=== PATIENT | male | born 1965 | race Caucasian/White ===

== ENCOUNTER 2018-07-18 06:54 | Day surgery (SDC) | payer MEDICARE, OTHER ==
--- NOTE | 2018-07-11 08:55 | PREOPHP ---
DATE OF ADMISSION: 07/18/2018 The patient to have surgery with Dr. Adi Lal, 07/18/2018. Consultation requested by Dr. Adi Lal for medical evaluation and clearance of a 53-year-old gentleman about to undergo surgery. Thank you, Dr. Lal, for allowing us to participate in the care of this patient. HISTORY OF PRESENT ILLNESS: Brijesh Wahl a 53-year-old gentleman with visual issues noted to have cataracts bilaterally, left more prominent than the right, is currently being admitted for correction of his left cataract for extraction and lens implantation of note. The patient is diabetic, who has had retinopathy as well as renal failure and currently is a recipien t of a transplanted kidney. PAST MEDICAL AND SURGICAL HISTORY: Positive for the following: He has had no significant medical ho spitalizations. His surgical procedures have included a kidney transplant as mentioned in 04/2018, also had vascular access or shunt put in a right and left upper extremity 1 time a piece, had a laparoscopic cholecyste ctomy and arterial bypass appears to be a fem-pop bypass on the right side. Other than that, he has had no other major surgical procedures. He has not broken any big bones. MEDICATIONS: He is currently taking the following medications: 1. Alprazolam 0.5 mg p.r.n. as needed. 2. Amlodipine 5 mg daily. 3. Atorvastatin 10 mg a day. 4. Carvedilol 12.5 mg, a total of 37.5 mg b.i.d. 5. Benadryl 25 mg q.6 hours as needed. 6. Colace 100 mg 2 b.i.d. 7. NovoLog insulin 4 units before breakfast, 6 before lunch and dinner. 8. Basaglar. The patient taking 8 units as needed at night. 9. He is also taking CellCept 250 mg 4 capsules by mouth b.i.d. 10. Protonix 40 mg a day. 11. Prednisone 5 mg daily. 12. Kayexalate 15 grams per 60 mL, takes 30 grams every other day. 13. Bactrim 400/80 mg 1 tablet by mouth daily. 14. Prograf 1 mg daily. 15. Valganciclovir or Valcyte 450 mg 2 tablets by mouth daily. 16. Tradjenta 5 mg a day. 17. Repaglinide 0.05 mg 4 times a day. ALLERGIES: HE IS ALLERGIC TO METOPROLOL. HE GETS A RASH FROM THAT. Other than the above, the patient, since his transplant, has been doing relatively well. SOCIAL HISTORY: The patient is , has 2 daughters and 5 grandchildren. Quit smoking 20 years ago. No alcohol. One cup of coffee a day. Has no difficulty sleeping at night. Used to work as a dedicated truck driver. FAMILY HISTORY: Father at age 71 off stomach cancer. Mother in her 60s of leukemia. Two siste rs in good health. There is, however, a family history of diabetes and heart cancer and hypertension . REVIEW OF SYSTEMS: HEENT: Unremarkable other than visual problems, cataracts, left greater than right. CARDIORESPIRATORY: Denies any chest pain or shortness of breath. GASTROINTESTINAL: Has signs and symptoms of hyperacidity but no melena or hematemesis. GENITOURINARY: No urgency, frequency. MUSCULOSKELETAL: Unremarkable. NEUROPSYCHIATRIC: Unremarkable. GENERAL HEALTH: As above. PHYSICAL EXAMINATION: VITAL SIGNS: The patient's blood pressure was 110/60, pulse was 72 and regular, respirations were 18 , temperature 97.4. Height 5 feet 3/4 inches, weight 156.1 pounds. GENERAL: The patient was noted to be a well-developed, well-nourished male, alert and cooperative, i n no apparent acute distress, oriented to time, place, and person. HEAD, EYES, EAR, NOSE AND THROAT: Head was atraumatic. Eyes: Pupils were equal, reacted to light a nd accommodation. Fundi were poorly visualized secondary to bilateral cataracts. Tympanic membranes were unremarkable. Nose was negative. Mouth was unremarkable. Fair oral hygiene was present. NECK: Supple without any rigidity. Trachea was midline. Thyroid was within normal limits. Neck ve ins were flat. Carotid pulses were equal. No bruits were heard. BACK: Unremarkable. CHEST: Symmetrical. BREASTS AND AXILLARY: Did not reveal any masses. LUNGS: Clear to percussion and auscultation. HEART: PMI is fifth intercostal space at the midclavicular line. A regular sinus rhythm was noted. No significant murmurs, rubs, or gallops being elicited. ABDOMEN: Soft, good bowel sounds were noted. A scar was noted in his right lower quadrant where the new kidney was implanted and has no significant organomegaly, masses, or tenderness. GENITALIA: Normal male external genitalia. RECTAL AND PROSTATIC: Per PCP. EXTREMITIES: Do not reveal any clubbing, edema, cyanosis. Bilateral vascular accesses were noted in the upper extremity as well as scar from his vascular bypass on his right lower extremity being note d as well. Peripheral pulses were physiologic. SKIN: Moist and warm without any eruptions. No gross lymphadenopathy was noted. NEUROLOGIC: Grossly intact. IMPRESSION: 1. Cataracts, left greater than right. 2. 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 3. Hypertension. 4. Hyperlipidemia. 5. Degenerative joint disease. 6. Stable health. DISCUSSION: Review of laboratory and other data revealed the following: The patient's chemistry tamayo el revealed normal electrolytes, random glucose 172, BUN and creatinine were normal. Calcium and uri c acid, proteins were normal. Alkaline phosphatase was elevated at 302 as was his SGPT and SGOT mini lucio 74 and 58 respectively. Lipids were normal. Serum iron was mildly elevated. Hemoglobin A1c w as 6.2. CBC, UA, PT and PTT were normal. The patient's EKG revealed a sinus rhythm and lateral T-wa ve changes possibly due to coronary artery disease; however, no acute changes were noted, and the pat ient's chest x-ray revealed no acute infiltrates nor with any acute cardiopulmonary changes noted. T he patient's residual volume post-void was 66 mL. DISCUSSION: Dr. Lal, I see no contraindication to this patient undergoing current proposed surg jose luis under desired form of anesthesia. I feel he is a suitable candidate at this particular point in time. Should any medical problems arise during his stay at [facility], we will be more than happy to follow him up at the appropriate times. Thank you again, Dr. Lal, for allowing us to participate in care of this patient. Dictated By: ROSALIA HUMPHRIES/NEREIDA Conf#: [id number] DID#: [id number]
--- NOTE | 2018-07-17 22:17 | PREOPHP ---
DATE OF ADMISSION: 07/18/2018 HISTORY OF PRESENT ILLNESS: This is a 53-year-old gentleman is admitted for elective cataract surger y of the left eye. This patient has had blurring of vision in the left eye for a period of 6 to 12 m onths. The patient without any prior history of eye disease or injury. The patient does have a 26-y ear history of insulin-dependent diabetes mellitus, systemic hypertension, history of proliferative d iabetic retinopathy, previously treated with panretinal photocoagulation in both eyes. The patient h as also undergone an epiretinal membrane peeling in the macular region of the left eye. The patient has had intravitreal Avastin injection in the left eye. CURRENT MEDICATIONS: 1. Insulin. 2. Tradjenta. 3. Alprazolam. 4. Amlodipine. 5. Atorvastatin. 6. Carvedilol. 7. NovoLog insulin. 8. Basaglar. 9. Protonix. 10. Prednisone. 11. Kayexalate. 12. Bactrim. 13. Prograf. 14. Valganciclovir. 15. Repaglinide. ALLERGIES: THE PATIENT IS ALLERGIC TO METORPOLOL. PHYSICAL EXAMINATION: The visual acuity with correction is 20/30 in the right eye and finger countin g in the left eye. Slit lamp examination reveals a nasal pterygium in the right eye as well as a pos terior chamber intraocular lens in the right eye. Examination of the left eye reveals nuclear sclero tic and posterior subcapsular cataract. Applanation tonometry is 19 mmHg in the right eye and 11 mmH g in the left eye. Examination of the retina reveals evidence of panretinal photocoagulation scars p resent in both eyes. DIAGNOSIS: Nuclear sclerotic and posterior subcapsular cataract, left eye. PLAN: Cataract extraction with lens implant, left eye. The risks and alternatives to the surgery patel ve been discussed with the patient as well as the potential limitation of visual improvement due to t he prior epiretinal membrane peeling from the macula of that eye. The patient understands this and a grees to proceed with surgery in hopes of improving visual acuity in the left eye, leading to greater ability to perform activities of daily living. Dictated By: GABRIEL COLES/NEREIDA Conf#: [id number] DID#: [id number]
[~2018-07-18] VITALS: Ht 165.1 cm; Wt 69.5 kg
[2018-07-18] VITALS (7 sets, daily range): BP systolic 105–117; BP diastolic 63–71; PULSE 76–77; RESP 16–22; Ht 165.1 cm; Wt 69.5 kg
[~2018-07-18 06:54] MED LIST: AMLO-147 PO; BENA20TA4 PO; FURO40TA4 PO; LABE100T7 PO; NEPH PO; OLME40TA13 PO; SITA25TA3 PO; SVL800C PO
[2018-07-18] MEDS ORDERED: CYCLOPENTOLATE/PHENYLEPH 2 ML OPH OPER SCH (07:00)
[2018-07-18] MEDS ORDERED: MOXIFLOXACIN 0.5% 3 ML OPH OPER SCH (07:00)
[2018-07-18] MEDS ORDERED: DICLOFENAC 0.1% 2.5 ML OPH OPER SCH (07:00)
[2018-07-18] MEDS ORDERED: TROPICAMIDE 1% 15 ML OPH OPER SCH (07:00)
[2018-07-18] MEDS ORDERED: SOD CHLORIDE 0.9% 1,000 ML IV SCH (07:00)
[2018-07-18] MEDS ORDERED: AMLO5TAB4 PO (07:40)
[2018-07-18] MEDS ORDERED: CARV12.579 PO (07:42)
[2018-07-18] MEDS ORDERED: NOVO3I SC ×3 (07:43)
[2018-07-18] MEDS ORDERED: INSU100I33 SC (07:44)
[2018-07-18] MEDS ORDERED: PANT40TA3 PO (07:44)
[2018-07-18] MEDS ORDERED: PRED5TAB PO (07:45)
[2018-07-18] MEDS ORDERED: SODI15OR8 PO (07:46)
[2018-07-18] MEDS ORDERED: SULF1TAB31 PO (07:47)
[2018-07-18] MEDS ORDERED: TACR1CAP26 PO (07:48)
[2018-07-18] MEDS ORDERED: LINA5TAB PO (07:48)
[2018-07-18] MEDS ORDERED: REPA0.5T3 PO (07:49)
--- NOTE | 2018-07-18 08:01 | PREAC ---
Date/Time of Note Date/Time of Note DATE: 07/18/18 TIME: 07:58 Anesthesia Eval and Record Evaluation Time Pre-Procedure Interview DATE: 07/18/18 TIME: 07:58 Age 53 Sex male NPO: 8 hrs Preoperative diagnosis Left eye cataract Planned procedure Cataract extraction with IOL implant Past Medical History Past Medical History: Includes Cardio: HTN, Dyslipidemia Endo: Diabetes Renal: Other (H/O ESRD s/p renal transplant) Surgery & Anesthesia Issues No known issue Meds Anticoagulation: No Beta Jenelle within 24 hr: Yes Reported Medications Repaglinide* (Repaglinide*) 0.5 Mg Tablet, 0.5 MG PO AC MEALS, TAB 07/18/18 Linagliptin (TRADJENTA) 5 Mg Tablet, 5 MG PO DAILY, TAB 07/18/18 Tacrolimus* (Prograf*) 1 Mg Capsule, 1 MG PO DAILY, CAP 07/18/18 Sulfamethoxazole/Trimethoprim* (Bactrim Ds* Tablet) 1 Each Tablet, 1 TAB PO DAILY, TAB ON GOING SINCE KIDNEY TRANSPLANT 07/18/18 Sodium Polystyrene Sulfonate* (Kayexalate*) 15 Gm/60 Ml Susp, 30 GM PO EVERY OTHER DAY, ML 07/18/18 Prednisone* (Prednisone*) 5 Mg Tab, 5 MG PO DAILY, TAB 07/18/18 Pantoprazole* (Protonix*) 40 Mg Tablet.dr, 40 MG PO DAILY, TAB 07/18/18 Insulin Glargine,Hum.rec.anlog (Basaglar Kwikpen U-100) 100 Unit/1 Ml Insuln.pen, 8 UNIT SC QHS, EA 07/18/18 Insulin Aspart* (Novolog Insulin Pen*) 100 Unit/Ml Soln, 6 UNIT SC WITH LUNCH, EA 07/18/18 Insulin Aspart* (Novolog Insulin Pen*) 100 Unit/Ml Soln, 6 UNIT SC WITH DINNER, EA 07/18/18 Insulin Aspart* (Novolog Insulin Pen*) 100 Unit/Ml Soln, 4 UNIT SC WITH BREAKFAST, EA 07/18/18 Carvedilol* (Carvedilol*) 12.5 Mg Tablet, 37.5 MG PO BID, #60 TAB 07/18/18 Amlodipine Besylate* (Norvasc*) 5 Mg Tablet, 5 MG PO DAILY, TAB 07/18/18 Discontinued Reported Medications Olmesartan Medoxomil (Benicar) 40 Mg Tablet, 40 MG PO DAILY 05/23/12 Sitagliptin* (Januvia*) 25 Mg Tablet, 25 MG PO DAILY 03/30/12 Sevelamer Hcl* (Renagel*) 800 Mg Tablet, 1600 MG PO TID 11/08/10 Labetalol Hcl* (Labetalol Hcl*) 100 Mg Tablet, 100 MG PO BID 11/08/10 Benazepril Hcl* (Benazepril Hcl*) 20 Mg Tablet, 20 MG PO BID 11/08/10 Furosemide (Lasix) 40 Mg Tab, 40 MG PO DAILY 11/08/10 Amlodipine Besylate* (Amlodipine Besylate*) 10 Mg Tablet, 10 MG PO DAILY 11/08/10 Multivit/Ca Carb/B Cmplx/Fa* (Jessy-Carlito*) 1 Tab Tab, 1 TAB PO DAILY 11/08/10 Current Medications Diclofenac Sodium (Voltaren 0.1%) 1 drop Q5 MIN X 3 OPER Last administered on 07/18/18at 07:11; Admin Dose 1 DROP; Start 07/18/18 at 07:00 Tropicamide (Mydriacyl 1%) 1 drop Q5 MIN X3 OPER Last administered on 07/18/18at 07:11; Admin Dose 1 DROP; Start 07/18/18 at 07:00 Moxifloxacin HCl (Vigamox) 1 drop Q5 MIN X 3 OPER Last administered on 07/18/18at 07:11; Admin Dose 1 DROP; Start 07/18/18 at 07:00 Cyclopentolate/ Phenylephrine (Cyclomydril Oph 2 ml) 1 drop Q5 MIN X 3 OPER Last administered on 07/18/18at 07:11; Admin Dose 1 DROP; Start 07/18/18 at 07:00 Sodium Chloride 1,000 ml @ 25 mls/hr Q24H IV ; Start 07/18/18 at 07:00 Meds reviewed: Yes Allergies Coded Allergies: metoprolol (Verified Allergy, Intermediate, RASH, 07/18/18) Allergies Reviewed: Yes Labs/Studies Labs Reviewed: Reviewed by anesthesiologist test: N/A Pre-procedure Exam Last vitals Vital Signs Date Temp Pulse Resp B/P (MAP) Pulse Ox O2 O2 Flow FiO2 Time Delivery Rate 07/18/18 97.4 77 18 112/68 99 Room Air 07:42 (83) Airway: Adequate mouth opening Mallampati: Mallampati I Teeth: Normal Lung: Normal Heart: Normal ASA Physical Status ASA physical status: 3 Emergency: None Planned Anesthetic General/MAC: MAC Planned Pain Management Parenteral pain med Pre-operative Attestations Prior to commencing anesthesia and surgery, the patient was re-evaluated, there was verification of: *The patient's identity *The results of appropriate recent lab work and preoperative vital signs *The above evaluation not changing prior to induction *Anesthetic plan, risk benefits, alternative and complications discussed with patient/family; questions answered; patient/family understands, accepts and wishes to proceed. NAIDA RYAN MD Jul 18, 2018 08:01
[2018-07-18] MEDS ORDERED: CARBACHOL 0.01% 1.5 ML OPH INJ ONE (08:20)
[2018-07-18] MEDS ORDERED: TETRACAINE 0.5% 4 ML OPH ONE (08:20)
[2018-07-18] MEDS ORDERED: LIDOCAINE 4% (MPF) 5 ML INJ ONE (08:20)
[2018-07-18] MEDS ORDERED: CEFAZOLIN 1 GM INJ ONE (08:20)
[2018-07-18] MEDS ORDERED: DEXAMETHASONE 4 MG/ML 1 ML INJ ONE (08:21)
[2018-07-18] MEDS ORDERED: GENTAMICIN 80 MG INJ ONE (08:21)
[2018-07-18] MEDS ORDERED: EPINEPHrine 1 MG INJ ONE (08:21)
[2018-07-18] MEDS ORDERED: NA HYALURONATE/CHONDROITIN 0.5 ML SYG ONE (08:21)
[2018-07-18] MEDS ORDERED: PROPOFOL 20 ML ONE (08:28)
[2018-07-18] MEDS ORDERED: MIDAZOLAM 1 MG/ML 2 ML INJ ONE (08:44)
[2018-07-18] MEDS ORDERED: EPHEDrine 25 MG/5 ML SYG IV PRN (09:00)
[2018-07-18] MEDS ORDERED: METOCLOPRAMIDE 10 MG INJ IV PRN (09:00)
[2018-07-18] MEDS ORDERED: ONDANSETRON 4 MG INJ IV PRN (09:00)
[2018-07-18] MEDS ORDERED: MEPERIDINE 25 MG INJ IV PRN (09:00)
[2018-07-18] MEDS ORDERED: OXYCODONE/ACETAMINOPHEN (5/325) TAB PO PRN ×2 (09:00)
[2018-07-18] MEDS ORDERED: FENTAnyl 50 MCG/ML VIAL IV PRN ×3 (09:00)
[2018-07-18] MEDS ORDERED: MIDAZOLAM 1 MG/ML 2 ML INJ IV PRN (09:00)
[2018-07-18] MEDS ORDERED: DIPHENHYDRAMINE 50 MG INJ IV PRN (09:00)
[2018-07-18] MEDS ORDERED: hydrALAzine 20 MG INJ IV PRN (09:00)
--- NOTE | 2018-07-18 09:34 | SIPON ---
Date/Time of Note Date/Time of Note DATE: 07/18/18 TIME: 09:33 Operative Report Preoperative Diagnosis nuclear sclerotic & posterior subcapsular cataract od Postoperative Diagnosis same Operation/Procedure Performed cataract extraction with lens implant od iris hooks inseriton od Surgeon gabriel garcía library media assistant none Anesthesia: MAC Estimated blood loss: none Transfusion Required none Specimen none Grafts/Implants posterior chamber lens implant Complications none GABRIEL GARCÍA MD Jul 18, 2018 09:34
--- NOTE | 2018-07-18 10:10 | PAC ---
Date/Time of Note Date/Time of Note DATE: 07/18/18 TIME: 10:10 Post-Anesthesia Notes Post-Anesthesia Note Last documented vital signs Vital Signs Date Temp Pulse Resp B/P (MAP) Pulse Ox O2 O2 Flow FiO2 Time Delivery Rate 07/18/18 76 22 105/65 97 Room Air 09:50 (78) 07/18/18 99.9 09:35 Activity: WNL Respiratory function: WNL Cardiovascular function: WNL Mental status: Baseline Pain reasonably controlled: Yes Hydration appropriate: Yes Nausea/Vomiting absent: Yes Comments BT: 98.9 NAIDA RYAN MD Jul 18, 2018 10:10
--- NOTE | 2018-07-18 10:13 | OPR ---
DATE OF OPERATION: 07/18/2018 PREOPERATIVE DIAGNOSES: Nuclear sclerotic and posterior subcapsular cataract secondary to prior pars plana vitrectomy and epiretinal membrane peeling left eye. POSTOPERATIVE DIAGNOSES: Nuclear sclerotic and posterior subcapsular cataract secondary to prior par s plana vitrectomy and epiretinal membrane peeling left eye. OPERATION PERFORMED: 1. Cataract extraction with lens implant, left eye. 2. Iris hooks insertion to retract the miotic pupil, left eye. SURGEON: Gabriel García M.D. ANESTHESIOLOGIST: Dr. Stevens. ANESTHESIA: Local standby. PROCEDURE: The patient was brought to the operating room and placed on the table with an IV in place and the patient attached to an pvc monitor. Oxygen was given via face mask. Due to the small pupil size despite the use of multiple topical mydriatic dilating eyedrops. It was decided that it would be safer to mechanically dilate the pupils using iris hooks. Therefore, 4 stab incisions were created using Superblade at the 2, 4, 8, and 10 o'clock positions through clear corne a near the limbus. Through these openings, silicone iris hooks were inserted and used to grasp the p upil and retracted in order to enlarge the pupil from 5 mm to 8 mm. After some intravenous sedation was administered, local anesthesia was given using Xylocaine 2% with epinephrine, mixed with Marcaine 0.5%. This was given in a lid block and retrobulbar injection. The patient was then prepped and draped in the usual sterile manner. A wire lid speculum was inserted between the lids of the left eye. A Superblade was used to enter th e anterior chamber at the corneoscleral limbus at the 10:30 o'clock position. A separate incision wa s made using a 3.0-mm keratome which entered the corneoscleral junction at the 12 o'clock position. Through this 3-mm opening, an irrigating cystotome was introduced into the anterior chamber. The guerrero mber was filled with Viscoat and an anterior capsulotomy was performed. Balanced salt solution was t hen used for hydrodissection of the lens. A phacoemulsification handpiece was then brought into the field and introduced into the anterior chamber. The lens nucleus was emulsified using a deep groove and cracking the nucleus into quadrants. Following this, each quadrant was aspirated and emulsified at the pupillary margin. After this was completed, the irrigation/aspiration handpiece was brought to the field, introduced in to the posterior chamber, and the lens cortical material was removed. When this was completed, addit ional Viscoat was injected into the anterior and posterior chambers. The 3-mm opening had its internal lips enlarged, and then the posterior chamber intraocular lens nicole uring 18.5 diopters ([employer] Model LI61AO) was then injected into the posterior c hamber using the lens injector system. After the leading haptic was introduced into the capsular bag and the lens optic was present in the center of the eye, the injector was removed and the trailing h aptic was grasped with non-toothed forceps and introduced into the capsular fold superiorly. A [place] ey hook was then used to rotate the intraocular lens so that the lips were oriented in the horizontal meridian. One 10-0 nylon suture was placed across the wound. Prior to tying, the irrigation/aspiration handpiece was reintroduced into the anterior chamber to rem ove the Viscoat. Miochol was instilled to constrict the pupil, and then the 10-0 nylon suture was ti ed. The ends were cut short and then the knot was buried. It should be noted that the posterior capsule was considerably deeper than usual due to the prior his tory of vitrectomy caution was taken not to violate the posterior capsule, and although there was a d ense posterior subcapsular cataract, most of this was aspirated or vacuumed off the posterior capsule . Then, 0.5 mL of dexamethasone and 0.5 mL of Ancef were injected into the sub-Tenon space in the infer ior fornix. Ciloxan drops were then placed on the surface of the eye. The speculum was removed and a patch was applied. The patient then left the operating room in satisfactory condition. Dictated By: GABREIL COLES/NEREIDA Conf#: [id number] DID#: [id number] CC: GABRIEL GARCÍA MD;*EndCC*
== END 2018-07-18 11:00 | disposition home or self-care (01) ==
LOC: SDS 06:54
PROVIDERS: ATTEND Ophthalmology
DX: E11.3593 Type 2 diabetes mellitus with proliferative diabetic retinopathy without macular edema, bilateral (principal); H25.12 Age-related nuclear cataract, left eye; Z79.4 Long term (current) use of insulin
CPT/HCPCS: 66982; 80053; 82962; J0171; J0690; J1100; J1580; J2250; V2632